=== PATIENT | male | born 1995 | race African-American/Black ===

== ENCOUNTER 2016-08-11 09:45 | Emergency (ER) | payer MEDICAID ==
[~2016-08-11] VITALS: Ht 177.8 cm; Wt 81.6 kg
[2016-08-11 09:51] VITALS: BP_SYST 126
[2016-08-11 13:30] VITALS: BP_SYST 134
== END 2016-08-11 13:30 | disposition left against medical advice (07) ==
LOC: SED 09:45
DX: S61.210A Laceration without foreign body of right index finger without damage to nail, initial encounter (principal); W26.0XXA Contact with knife, initial encounter; Y93.89 Activity, other specified; Y92.59 Other trade areas as the place of occurrence of the external cause; Y99.8 Other external cause status